=== PATIENT | female | born 1970 | race Caucasian/White ===

== ENCOUNTER 2017-12-09 06:54 | Day surgery (SDC) | payer MEDICAID ==
[2017-12-05 11:53] LABS: BASOPHILS # (AUTO) 0.1 K/uL (0.00-0.22); BASOPHILS % (AUTO) 0.7 % (0.0-2.0); EOSINOPHILS # (AUTO) 0.1 K/uL (0-0.4); EOSINOPHILS % (AUTO) 1.1 % (0.0-4.0); HEMATOCRIT 40.2 % (36-48); HEMOGLOBIN 13.8 g/dL (12.0-16.0); LYMPHOCYTES # (AUTO) 2.7 K/uL (2.5-16.5); LYMPHOCYTES % (AUTO) 34.7 % (20.5-51.1); MEAN CORPUSCULAR HEMOGLOBIN 32 pg (27-31); MEAN CORPUSCULAR HGB CONC 34 g/dL (33-37); MEAN CORPUSCULAR VOLUME 93.3 fL (80-94); MONOCYTES # (AUTO) 0.4 K/uL (0.8-1.0); MONOCYTES % (AUTO) 4.8 % (1.7-9.3); NEUTROPHILS # (AUTO) 4.6 K/uL (1.8-7.7); NEUTROPHILS % (AUTO) 58.7 % (42.2-75.2); PLATELET COUNT (AUTO) 223 K/uL (140-450); RED BLOOD CELL COUNT(AUTO) 4.31 MIL/uL (4.20-5.40); RED CELL DISTRIBUTION WIDTH 13.2 % (11.6-13.7); WHITE BLOOD COUNT (AUTO) 7.8 K/uL (4.8-10.8)
[2017-12-05 12:21] LABS: CREATININE 0.9 mg/dL (0.6-1.3)
[~2017-12-09] VITALS: Ht 152.4 cm; Wt 67.1 kg
[2017-12-09] MEDS ORDERED: TAMO20TA3 PO (07:33)
[2017-12-09] MEDS ORDERED: BENA20TA PO (07:33)
[2017-12-09] MEDS ORDERED: METF500T2 PO (07:33)
[2017-12-09] MEDS ORDERED: CEFAZOLIN SODIUM 1 GM/D5W PM 50 ML IV SCH (07:40)
[2017-12-09] MEDS ORDERED: PROPOFOL 200 MG/20 ML VIAL IV ONE (09:32)
[2017-12-09] MEDS ORDERED: BUPIVACAINE MPF 0.25% 10 ML VIAL INJ ONE (09:33)
[2017-12-09] MEDS ORDERED: fentaNYL 0.05 MG/ML VIAL ONE (09:41)
[2017-12-09] MEDS ORDERED: MIDAZOLAM 2 MG/2 ML VIAL ONE (09:42)
[2017-12-09] MEDS ORDERED: ONDANSETRON 4 MG/2 ML VIAL IVP PRN (09:55)
[2017-12-09] MEDS ORDERED: HYDROmorphone 1 MG/ML AMP IVP PRN (09:55)
[2017-12-09] MEDS ORDERED: BLOOD GLUCOSE MONITORING 1 DEV DEV FS SCH (09:55)
== END 2017-12-09 12:00 | disposition home or self-care (01) ==
LOC: MDS 06:54 → MMU 06:55 → MDS 12:00
PROVIDERS: ATTEND Surgery
DX: Z45.2 Encounter for adjustment and management of vascular access device (principal); E11.9 Type 2 diabetes mellitus without complications; Z85.3 Personal history of malignant neoplasm of breast; K21.9 Gastro-esophageal reflux disease without esophagitis; E66.3 Overweight; Z98.890 Other specified postprocedural states; Z68.28 Body mass index [BMI] 28.0-28.9, adult; Z79.899 Other long term (current) drug therapy
CPT/HCPCS: 36415; 36590; 71045; 80048; 81025; 82948; 85025; 93005; J0690; J2250; J2704; J3010; J3490; J7030

== ENCOUNTER 2020-01-15 05:18 | Emergency (ER) | payer MEDICAID ==
[~2020-01-15] VITALS: Ht 152.4 cm; Wt 64.9 kg
[~2020-01-15 05:18] MED LIST: BENA20TA PO; METF500T2 PO; TAMO20TA3 PO
[2020-01-15 05:25] VITALS: BP 141/87
[2020-01-15] MEDS ORDERED: KETOROLAC 30 MG/ML VIAL IM ONE (05:50)
--- NOTE | 2020-01-15 05:52 | NUR ---
PT C/O CHEST PAIN X 2 WEEKS, WAS SEEN AT [facility] AND DX WITH COSTOCHONDRITIS, HOWEVER THE PAIN HAS GOTTEN WORSE AND NOW RADIATES INTO HER LEFT ARM. PT ALSO C/O NAUSEA BUT NO VOMITING OR DIARRHEA. SOME SOB DUE TO PAIN LEVEL, NO COUGH, AFEBRILE. RESPIRATIONS REGULAR AND UNLABORED. PT PLACED N BEDSIDE MONITOR. BED IN LOWEST POSITION AND SIDERAIL UP X 1. NKA HX - HTN, HLD, DM, BREAST CA
--- NOTE | 2020-01-15 05:54 | NUR ---
EMT AT BEDSIDE PERFORMING EKG
--- NOTE | 2020-01-15 06:01 | NUR ---
LABS COLLECTED AND PICKED UP BY OVERHEAD CLEANER MAINTAINER
[2020-01-15 06:08] LABS: BASOPHILS % (AUTO) 0.4 % (0.0-2.0); EOSINOPHILS # (AUTO) 0.2 K/uL (0-0.4); EOSINOPHILS % (AUTO) 2.4 % (0.0-4.0); HEMATOCRIT 37.5 % (36-48); LYMPHOCYTES # (AUTO) 2.7 K/uL (2.5-16.5); LYMPHOCYTES % (AUTO) 33.1 % (20.5-51.1); MEAN CORPUSCULAR HEMOGLOBIN 33 pg (27-31); MEAN CORPUSCULAR HGB CONC 35 g/dL (33-37); MEAN CORPUSCULAR VOLUME 93.8 fL (80-94); MONOCYTES # (AUTO) 0.5 K/uL (0.8-1.0); NEUTROPHILS # (AUTO) 4.7 K/uL (1.8-7.7); NEUTROPHILS % (AUTO) 58.1 % (42.2-75.2); PLATELET COUNT (AUTO) 243 K/uL (140-450); RED CELL DISTRIBUTION WIDTH 13.2 % (11.6-13.7); WHITE BLOOD COUNT (AUTO) 8.1 K/uL (4.8-10.8)
--- NOTE | 2020-01-15 06:47 | NUR ---
LAB CALLED REGARDING PENDING RESULTS FOR CHEMISTRY PANEL, STATES THEY ARE STILL RUNNING.
--- NOTE | 2020-01-15 06:49 | NUR ---
PT RESTING QUIETLY, STATES PAIN IS BETTER BUT STILL A 4-5/10, WHEN ASKED IF SHE WANTED SOME MORE PAIN MEDS SHE SAID YES, MD RIVERA AWARE, NEW ORDER RECEIVED.
[2020-01-15] MEDS ORDERED: ACETAMINOPHEN EXTRA STRENGTH 500 MG TAB ONE (06:59)
[2020-01-15] MEDS ORDERED: ACETAMINOPHEN EXTRA STRENGTH 500 MG TAB PO ONE (07:00)
[2020-01-15 07:06] LABS: ALBUMIN 3.8 g/dL (3.4-5.0); CARBON DIOXIDE 26.9 mmol/L (21-32); CREATININE 0.8 mg/dL (0.6-1.3); POTASSIUM 3.9 mmol/L (3.5-5.1); TOTAL BILIRUBIN 0.6 mg/dL (0.0-1.0)
--- NOTE | 2020-01-15 07:08 | NUR ---
REPORT GIVEN TO LANG DOSS
--- NOTE | 2020-01-15 07:09 | NUR ---
REPORT RECEIVED FROM BROOKLYNN DOSS, TRANSFER OF CARE AT THIS TIME
--- NOTE | 2020-01-15 07:17 | NUR ---
Patient discharged with v/s stable. Written and verbal after care instructions about chest wall pain given and explained. Patient alert, oriented and verbalized understanding of instructions. Ambulatory with steady gait. All questions addressed prior to discharge. ID band removed. Patient advised to follow up with PMD. Rx of naprosyn given. Patient educated on indication of medication including possible reaction and side effects. Opportunity to ask questions provided and answered.
[2020-01-15 07:19] VITALS: BP 119/65
== END 2020-01-15 07:17 | disposition home or self-care (01) ==
LOC: MED 05:18
DX: R07.89 Other chest pain (principal); Z79.899 Other long term (current) drug therapy; Z79.84 Long term (current) use of oral hypoglycemic drugs
CPT/HCPCS: 36415; 71045; 80053; 83690; 83880; 84484; 85025; 93005; 96372; 99285; J1885; Q0092

== ENCOUNTER 2020-03-13 09:00 | Inpatient (IN) | payer MEDICAID, SELFPAY ==
[~2020-03-13] VITALS: Ht 152.4 cm; Wt 65.8 kg
[2020-03-13 09:14] VITALS: BP 129/75
[2020-03-13] MEDS ORDERED: ACETAMINOPHEN EXTRA STRENGTH 500 MG TAB PO ONE (09:30)
--- NOTE | 2020-03-13 09:30 | NUR ---
Note dennisonelia in EDM - 03/13/20 at 1554 by AirizuJ 49 YEAR OLD FEMALE COMPLAINS OF BODYACHES, FEVER, SHORTNESS OF BREATHE, AND HEADACHE X 5 DAYS. PT PLACED ON MONITOR, VS STABLE. SPO2 98% ON RA, RR 13. PT AOX4, BREATHING EVEN AND UNLABORED, SKIN WARM AND DRY. BED IN LOWEST POSITION, LOCKED, BED RAIL UPX1. PMH - HTN, DM2, CANCER ALLERGIS - NKA
--- NOTE | 2020-03-13 09:30 | NUR ---
49 YEAR OLD FEMALE COMPLAINS OF BODYACHES, FEVER, SHORTNESS OF BREATHE, AND HEADACHE X 5 DAYS. PT PLACED ON MONITOR, VS STABLE. SPO2 98% ON RA, RR 13. PT AOX4, BREATHING EVEN AND UNLABORED, SKIN WARM AND DRY. BED IN LOWEST POSITION, LOCKED, BED RAIL UPX1. PMH - HTN, DM2, BREAST CANCER (10 YEARS AGO) ALLERGIS - NKA
--- NOTE | 2020-03-13 10:09 | NUR ---
FLU, RSV, AND CHERYL SWAB SENT TO LAB
[2020-03-13 10:23] LABS: BASOPHILS % (AUTO) 0.4 % (0.0-2.0); HEMOGLOBIN 14.7 g/dL (12.0-16.0); LYMPHOCYTES # (AUTO) 1.1 K/uL (2.5-16.5); LYMPHOCYTES % (AUTO) 26.9 % (20.5-51.1); MEAN CORPUSCULAR HEMOGLOBIN 32 pg (27-31); MEAN CORPUSCULAR HGB CONC 35 g/dL (33-37); MEAN CORPUSCULAR VOLUME 91.7 fL (80-94); MONOCYTES # (AUTO) 0.3 K/uL (0.8-1.0); MONOCYTES % (AUTO) 7.7 % (1.7-9.3); NEUTROPHILS # (AUTO) 2.7 K/uL (1.8-7.7); PLATELET COUNT (AUTO) 137 K/uL (140-450); RED BLOOD CELL COUNT(AUTO) 4.58 MIL/uL (4.20-5.40); RED CELL DISTRIBUTION WIDTH 13.4 % (11.6-13.7); WHITE BLOOD COUNT (AUTO) 4.1 K/uL (4.8-10.8)
[2020-03-13 10:31] LABS: APPEARANCE,URINE CLEAR (CLEAR); BILIRUBIN,URINE NEGATIVE (NEGATIVE); BLOOD, URINE NEGATIVE (NEGATIVE); COLOR,URINE YELLOW (YELLOW); LEUKOCYTE ESTERASE ,URINE NEGATIVE (NEGATIVE); NITRITE, URINE NEGATIVE (NEGATIVE); UGLUCOSE 2+ (NEGATIVE)
[2020-03-13 10:35] LABS: RBC,URINE 0-5 /HPF (0-5); WBC,URINE 0-5 /HPF (0-5)
[2020-03-13 10:35] LABS: ANION GAP 14.7 (8-16); CARBON DIOXIDE 23.3 mmol/L (21-32); CREATININE 0.7 mg/dL (0.6-1.3)
[2020-03-13 10:40] LABS: LACTATE DEHYDROGENASE 219 U/L (81-234)
[2020-03-13 10:41] LABS: ALBUMIN 3.8 g/dL (3.4-5.0); C-REACTIVE PROTEIN QUANT 3.3 mg/dL (0.0-0.9); TOTAL BILIRUBIN 0.5 mg/dL (0.0-1.0)
[2020-03-13 10:57] LABS: PROTHROMBIN TIME 10.3 secs (10.8-13.4)
--- NOTE | 2020-03-13 11:03 | NUR ---
PT ALERT AND AWAKE, BREATHING EVEN AND UNLABORED. NO DISTRESS NOTED.
[2020-03-13 11:18] LABS: RSV NEGATIVE (NEGATIVE)
--- NOTE | 2020-03-13 12:35 | NUR ---
covid swab collected and sent to lab
--- NOTE | 2020-03-13 13:00 | NUR ---
PT ALERT AND AWAKE, BREATHING EVEN AND UNLABORED. NO DISTRESS NOTED.
--- NOTE | 2020-03-13 14:08 | NUR ---
PT ALERT AND AWAKE, BREATHING EVEN AND UNLABORED. NO DISTRESS NOTED.
[2020-03-13] MEDS ORDERED: HYDROcodone/APAP 7.5/325 MG 1 TAB PO PRN (14:35)
[2020-03-13] MEDS ORDERED: POTASSIUM CHLORIDE 10 MEQ TABER PO PRN (14:35)
[2020-03-13] MEDS ORDERED: ONDANSETRON 4 MG/2 ML VIAL IM/IVP PRN (14:35)
[2020-03-13] MEDS ORDERED: DOCUSATE SODIUM 100 MG GELCAP PO PRN (14:35)
[2020-03-13] MEDS ORDERED: guaiFENesin DM 200/20 MG-10 ML 10 ML UDC PO PRN (14:35)
[2020-03-13] MEDS ORDERED: ZOLPIDEM 5 MG TAB PO PRN (14:35)
[2020-03-13] MEDS ORDERED: ALBUTEROL HFA MDI 90 MCG/ACTUATION 8 GM INH PRN (14:40)
[2020-03-13] MEDS ORDERED: ALBUTEROL SULFATE/IPRATROPIU 3 ML SOL IH PRN (14:40)
--- NOTE | 2020-03-13 14:42 | NUR ---
PER DR JAY TO IGNORE THE OBTAIN CONSENT ORDER FOR NOW, IT WAS NOT MEAN TO BE PUT IN
[2020-03-13] MEDS: NACL 0.9% 1,000 ML IV SCH (15:04)
[2020-03-13] MEDS ORDERED: cefTRIAXone 1,000 MG VIAL ONE (15:05)
[2020-03-13 15:14] LABS: CHOL/HDL RATIO 2.4 (1-4.5); MAGNESIUM 1.5 mg/dL (1.8-2.4); PHOSPHORUS 3.6 mg/dL (2.5-4.9); THYROID STIMULATING HORMONE 0.72 uIU/mL (0.34-3.74)
--- NOTE | 2020-03-13 15:30 | NUR ---
PT ALERT AND AWAKE, BREATHING EVEN AND UNLABORED. NO DISTRESS NOTED.
--- NOTE | 2020-03-13 16:05 | NUR ---
PER SINA IN LAB, CHERYL TEST CAME BACK INVALID FOR A 2ND TIME. PER SINA, DO NOT RUN A 3RD TEST & WAIT ON PCR RESULT
[2020-03-13] MEDS ORDERED: ATOR10TA PO (16:40)
[2020-03-13] MEDS ORDERED: LISI10TA11 PO (16:40)
--- NOTE | 2020-03-13 17:00 | NUR ---
PT ALERT AND AWAKE, BREATHING EVEN AND UNLABORED. NO DISTRESS NOTED.
--- NOTE | 2020-03-13 18:00 | NUR ---
PT ALERT AND AWAKE, BREATHING EVEN AND UNLABORED. NO DISTRESS NOTED.
[2020-03-13] MEDS: ALBUTEROL SULFATE/IPRATROPIU 3 ML SOL IH SCH (19:00)
--- NOTE | 2020-03-13 19:16 | NUR ---
RECEIVED REPORT FROM SELAM CROFT FOR CONTINUATION OF CARE
--- NOTE | 2020-03-13 19:23 | NUR ---
REPORT GIVEN TO ELI DOSS, TRANSFER OF CARE AT THIS TIME
--- NOTE | 2020-03-13 19:41 | NUR ---
PT IS ASLEEP IN BED WITH HOB ELEVATED, VISIBLE RISE AND FALL OF CHEST NOTED. BED IS LOCKED AND IN LOWEST POSITION. PT IS NOT IN ANY ACUTE DISTRESS AT THIS TIME. PT IS CONNECTED TO THE LOTTERIES AGENT, SAO2 @ 99%.
--- NOTE | 2020-03-13 20:17 | NUR ---
REPORT CALLED TO SELAM MENON FOR TRANSFER OF CARE TO TELEMETRY ROOM 111A.
--- NOTE | 2020-03-13 20:19 | NUR ---
pt ambulated to bedside commode with a steady gait
--- NOTE | 2020-03-13 21:23 | NUR ---
Pts oral temperature is at 102.0, will administer PRN tylenol for fever.
--- NOTE | 2020-03-13 21:45 | NUR ---
RECEIVED REPORT FROM ER NURSE. PT ARRIVED FROM ER TO UNIT VIA GURNEY. PT AAOX4, AMBULATORY, ABLE TO MAKE NEEDS KNOWN. CALM AND COOPERATIVE TO CARE. RESPIRATIONS EVEN AND UNLABORED TO O2 2LPM/NC. LUNG SOUNDS DIMINISHED. ABDOMEN IS SOFT AND NON-TENDER. SKIN IS WARM, DRY, AND INTACT. IV ACCESS ON LEFT AC G22 PATENT AND INTACT. IVF INFUSING WELL. PT DENIES ANY PAIN OR DISCOMFORT AT THIS TIME. PT WELCOMED AND ORIENTED TO ROOM. VITAL SIGNS TAKEN. MRSA SWAB DONE. PT CONNECTED TO TELE MONITORING. PT KEPT COMFORTABLE. SAFETY MEASURES IN PLACE. CALL LIGHT WITHIN REACH. WILL CONTINUE TO MONITOR.
--- NOTE | 2020-03-13 21:45 | NUR ---
Patient will be admitted to care of DR. JAY. Admited to TELEMETRY. Will go to room 111A. Belongings list completed. Report to SELAM PRECIADO.
[2020-03-13] MEDS: ACETAMINOPHEN 325 MG TAB PO PRN (21:53)
--- NOTE | 2020-03-13 21:55 | NUR ---
TEMP 99.7. COOLING MEASURES IN PLACE. SCHEDULED MEDS GIVEN. PROVIDED SNACKS AND WATER PER PT REQUESTS. PT KEPT COMFORTABLE. SAFETY MEASURES IN PLACE. CALL LIGHT WITHIN REACH. WILL CONTINUE TO MONITOR.
[2020-03-13 23:19] LABS: BARBITURATE, URINE NEGATIVE ng/ml (NEG <=200); BENZODIAZEPINE, URINE NEGATIVE ng/mL (NEG <=200); CANNABINOID, URINE NEGATIVE ng/mL (NEG <=50); COCAINE, URINE NEGATIVE ng/mL (NEG <=300); OPIATE, URINE NEGATIVE ng/mL (NEG <=2000); PHENCYCLIDINE SCREEN,URINE NEGATIVE ng/mL (NEG <=25)
[2020-03-14] VITALS: BP 97/60
--- NOTE | 2020-03-14 00:03 | NUR ---
VS TAKEN. ORAL TEMP 100.2. TYLENOL NOT DUE YET. COOLING MEASURES IN PLACE. PT NOT IN DISTRESS. DENIES ANY PAIN OR DISCOMFORT AT THIS TIME. WILL CONTINUE TO MONITOR.
[2020-03-14] MEDS: ALBUTEROL SULFATE/IPRATROPIU 3 ML SOL IH SCH ×4 (01:00→19:00)
--- NOTE | 2020-03-14 02:12 | NUR ---
PT ASLEEP. VISIBLE CHEST RISE AND FALL NOTED. PT NOT IN DISTRESS. O2 SAT 97%. PT KEPT COMFORTABLE. SAFETY MEASURES IN PLACE. CALL LIGHT WITHIN REACH. WILL CONTINUE TO MONITOR.
[2020-03-14 04:00] VITALS: BP 107/67
--- NOTE | 2020-03-14 04:09 | NUR ---
VS TAKEN. PT AFEBRILE TEMP 99.3 BUT STILL FEELS WARM. COOLING MEASURES IN PLACE. PT COMPLAINING OF HEADACHE. PRN TYLENOL GIVEN ORDERED. WILL CONTINUE TO MONITOR.
[2020-03-14] MEDS: ACETAMINOPHEN 325 MG TAB PO PRN ×2 (04:10→12:39)
[2020-03-14] MEDS: NACL 0.9% 1,000 ML IV SCH ×2 (07:15→23:55)
--- NOTE | 2020-03-14 07:22 | NUR ---
ENDORSED TO DAY SHIFT NURSE FOR CONTINUITY OF CARE
--- NOTE | 2020-03-14 07:27 | NUR ---
RECEIVED REPORT FROM NIGHTSHIFT NURSE. PT RESTING IN BED. ABLE TO MAKE NEEDS KNOWN. RESPIRATIONS EVEN AND UNLABORED WITH NO SOB OR RESPIRATORY DISTRESS. SKIN WARM AND DRY TO TOUCH. IV SITE IN LAC 20G IS CLEAN, DRY, AND INTACT. SAFETY MEASURES IN PLACE. WILL CONTINUE TO MONITOR
[2020-03-14 07:55] LABS: BASOPHILS % (AUTO) 0.2 % (0.0-2.0); HEMOGLOBIN 13.9 g/dL (12.0-16.0); LYMPHOCYTES % (AUTO) 23.8 % (20.5-51.1); MEAN CORPUSCULAR HEMOGLOBIN 32 pg (27-31); MEAN CORPUSCULAR HGB CONC 35 g/dL (33-37); MEAN CORPUSCULAR VOLUME 92.3 fL (80-94); MONOCYTES # (AUTO) 0.3 K/uL (0.8-1.0); MONOCYTES % (AUTO) 5.8 % (1.7-9.3); NEUTROPHILS % (AUTO) 70.2 % (42.2-75.2); PLATELET COUNT (AUTO) 126 K/uL (140-450); RED BLOOD CELL COUNT(AUTO) 4.33 MIL/uL (4.20-5.40); RED CELL DISTRIBUTION WIDTH 13.1 % (11.6-13.7); WHITE BLOOD COUNT (AUTO) 4.3 K/uL (4.8-10.8)
[2020-03-14 08:00] VITALS: BP 111/69
[2020-03-14] MEDS: metFORMIN 500 MG TAB PO SCH ×2 (08:00→16:56)
[2020-03-14 08:10] LABS: T4 (THYROXINE) 8.4 ug/dL (4.5-12.0)
[2020-03-14 08:17] LABS: ANION GAP 14.9 (8-16); CARBON DIOXIDE 24.1 mmol/L (21-32); CREATININE 0.7 mg/dL (0.6-1.3)
--- NOTE | 2020-03-14 08:39 | NUR ---
PATIENT HAS BEEN SCREENED AND CATEGORIZED MODERATE NUTRITION RISK. PATIENT WILL BE SEEN WITHIN 3-5 DAYS OF ADMISSION. 03/15/20 03/17/[address]
--- NOTE | 2020-03-14 09:45 | NUR ---
ADMINISTERED SCHED MED PRESCRIBED PER MD ORDER. PT TOLERATED WELL. MEDICATION EDUCATION PERFORMED. PT VERBALIZED UNDERSTANDING. SAFETY MEASURES IN PLACE. WILL CONTINUE TO MONITOR
[2020-03-14] MEDS: ZINC SULF 220 MG CAP PO SCH (09:48)
[2020-03-14] MEDS: lisinopriL 10 MG TAB PO SCH (09:48)
[2020-03-14] MEDS: ASCORBIC ACID 500 MG TAB PO SCH (09:49)
[2020-03-14] MEDS: AZITHROMYCIN 250 MG TAB PO SCH (09:49)
[2020-03-14] MEDS: PANTOPRAZOLE 40 MG TABEC PO SCH (09:50)
[2020-03-14] MEDS ORDERED: DEXTROSE 50% 50 ML SYR IVP PRN (11:45)
[2020-03-14 12:00] VITALS: BP 135/72
--- NOTE | 2020-03-14 12:43 | NUR ---
PT COMPLAINED OF MILD PAIN. PRN TYLENOL ADMINISTERED PRESCRIBED PER MD ORDER. PT TOLERATED WELL. WILL CONTINUE TO MONITOR
--- NOTE | 2020-03-14 13:17 | NUR ---
DC PLANN[age] YRS OLD FEMALE PATIENT WAS ADMITTED FROM HOME WITH A DX OF SUSPECTED COVID INFECTION , HYPOXIA, DIABETES. PT HAS HX OF DM, HTN AND BREAST CA ON CHEMOTHERAPY UNTIL 2 MONTHS AGO. CXR SHOWED INFILTRATES. COVID TEST PCR PENDING. ADMINISTERED IVF. IV ABX ROCEPHIN , BREATHING TREATMENT AND CONTINUED HOME MEDS. CONSULTED WITH PULMO. DC PLAN TO GO HOME WHEN STABLE CM TO FOLLOW.
--- NOTE | 2020-03-14 13:37 | NUR ---
SOCIAL WORK NOTE: Patient's Orientation Unable To Assess Information Provided By NADIA MIKE - SISTER Comments SW WAS UNABLE TO MEET PATIENT AT BEDSIDE DUE TO MEDICAL CONDITION. SW CONTACTED PATIENT'S SISTER, NADIA, TO COMLPETE ASSESSMENT AND VERIFY DEMOGRAPHICS. SW USED NOVELTY PRINTING MACHINE OPERATOR ROBERT [id number]. Boat Diesel Motor Mechanic, Realtionship and Phone Number NADIA MIKE SISTER [phone] Healthcare Power of Inspector Aide No Does Patient Have a POLST No Identifying Problems No Social Work Triggers Is A Social Work Consult Needed No Mandate Report Filed No Explanation Of Identifying Problems PATIENT IS A 49-YEAR-OLD FEMALE ADMITTED FOR SUSPECTED COVID INFECTION. PATIENT HAS PMHX OF CANCER, DIABETES, AND HYPERTENSION. PATIENT'S SISTER REPORTED NO HISTORY OF SUBSTANCE ABUSE OR MENTAL HEALTH. Admitted From Home Pre-Admission Level Of Functioning Status Independent/Ambulatory Prior Resources/Services Used In Last 12 Months No Prior Resources Used Prior DME No Prior DME Used Dialysis Comments N/A Living Situation Lives With Family House Patient Had Caregiver No Home Support No Caregiver Issues Financial Issues No Known Financial Issue Referral To The Financial Counselor Needed No Factors/Needs No D/C Needs Identified Explanation And Or Other Factors Affecting/Possible DC Needs PATIENT'S SISTER NADIA STATED SHE WOULD PICK PATIENT UP AT DISCHARGE. Pt/Rep Participated In Discharge Plan Yes Patient/Family Agress With Discharge Plan Yes Discharge Plan Comments TENTATIVE DISCHARGE PLAN IS FOR PATIENT TO BE DISCHARGED HOME. DC Plan Status Initiated
--- NOTE | 2020-03-14 14:15 | NUR ---
HOURLY ROUNDING. PT RESTING IN BED. ABLE TO MAKE NEEDS KNOWN. RESPIRATIONS EVEN AND UNLABORED WITH NO SOB OR RESPIRATORY DISTRESS. SKIN WARM AND DRY TO TOUCH. SAFETY MEASURES IN PLACE. WILL CONTINUE TO MONITOR
--- NOTE | 2020-03-14 15:00 | NUR ---
ADMINISTERED SCHED MED PRESCRIBED PER MD ORDER. PT TOLERATED WELL. MEDICATION EDUCATION PERFORMED. PT VERBALIZED UNDERSTANDING. SAFETY MEASURES IN PLACE. WILL CONTINUE TO MONITOR
[2020-03-14 16:00] VITALS: BP 111/62
--- NOTE | 2020-03-14 16:30 | NUR ---
PT BLOOD SUGAR IS 325. PRN INSULIN TO BE ADMINISTERED PRESCRIBED PER MD ORDER WITH NEXT MEAL. SAFETY MEASURES IN PLACE. WILL CONTINUE TO MONITOR
[2020-03-14] MEDS: BLOOD GLUCOSE MONITORING 1 DEV DEV FS SCH ×2 (16:34→20:47)
[2020-03-14] MEDS: INSULIN LISPRO SLIDING SCALE 100 UNITS/ML VIAL SUBQ PRN ×2 (16:56→21:02)
--- NOTE | 2020-03-14 17:03 | NUR ---
ADMINISTERED SCHED MED PRESCRIBED PER MD ORDER. PT TOLERATED WELL. MEDICATION EDUCATION PERFORMED. PT VERBALIZED UNDERSTANDING. SAFETY MEASURES IN PLACE. WILL CONTINUE TO MONITOR
--- NOTE | 2020-03-14 19:23 | NUR ---
ENDORSED TO NIGHTSHIFT NURSE FOR CONTINUITY OF CARE. PT IS STABLE
--- NOTE | 2020-03-14 19:24 | NUR ---
RECEIVED BEDSIDE REPORT FROM DAY RN. PT RESTING IN BED IS AAOX4 ABLE TO MAKE NEEDS KNOWN. RESPIRATIONS EVEN AND UNLABORED WITH NO SOB OR RESPIRATORY DISTRESS ON 2L VIA NC. SKIN WARM AND DRY TO TOUCH SKIN IS INTACT. IV SITE IN LAC 20G IS CLEAN, DRY, AND INTACT INFUSING NS AT 60ML/H. SAFETY MEASURES IN PLACE. DROPLET SIGN ON DOOR. POC DISCUSSED WITH PT. CALL LIGHT IS WITHIN REACH. WILL CONTINUE TO MONITOR.
[2020-03-14 20:00] VITALS: BP 108/57
--- NOTE | 2020-03-14 20:47 | NUR ---
VSS. PT DENIES ANY SOB ON 2L VIA NC. LUNG SOUNDS DIMINISHED AT BASE. BLOOD SUGAR 311 ADMINISTERED INSULIN PER SLIDING SCALE HAS SNACK AT BEDSIDE. KAT MEDICATION GIVEN PT TOLERATED WELL. ALL NEEDS MET. CALL LIGHT IS WITHIN REACH. WILL CONTINUE TO MONITOR.
--- NOTE | 2020-03-14 21:00 | NUR ---
RECEIVED REPORT FROM AM SHIFT. PT SEEN AND ASSESSED. PT IS NO 2L NASAL CANNULA WITH SPO2 OF 99%. TITRATED PT TO ROOM AIR WITH SPO2 OF 95%. PT IS IN NO APPARENT RESPIRATORY DISTRESS AT THIS TIME. RN NOTIFIED. WILL CONTINUE TO MONITOR PT. HHN TX NOT GIVEN AT THIS TIME DUE TO COVID PROTOCOL.
--- NOTE | 2020-03-14 22:32 | NUR ---
PT IS RESTING COMFORTABLY IN BED WATCHING TV. NO S/S OF DISTRESS. CALL LIGHT IS WITHIN REACH.
[2020-03-15] VITALS: BP 104/53
--- NOTE | 2020-03-15 | NUR ---
VITAL SIGNS ARE WITHIN NORMAL LIMITS. ALL SAFETY MEASURES ARE IN PLACE. CALL LIGHT IS WITHIN REACH. WILL CONTINUE TO MONITOR.
[2020-03-15] MEDS: ALBUTEROL SULFATE/IPRATROPIU 3 ML SOL IH SCH ×2 (01:00→08:25)
--- NOTE | 2020-03-15 02:04 | NUR ---
ROUNDS MADE. PT IS SLEEPING COMFORTABLY IN BED WITH EYES CLOSED. CHEST RISE AND FALL NOTED. ALL SAFETY MEASURES IN PLACE. CALL LIGHT IS WITHIN REACH.
[2020-03-15 04:00] VITALS: BP 107/61
--- NOTE | 2020-03-15 04:15 | NUR ---
VITAL SIGNS ARE WITHIN NORMAL LIMITS. ALL SAFETY MEASURES ARE IN PLACE. CALL LIGHT IS WITHIN REACH.
[2020-03-15] MEDS: BLOOD GLUCOSE MONITORING 1 DEV DEV FS SCH ×3 (06:16→17:08)
[2020-03-15 06:18] LABS: BASOPHILS % (AUTO) 0.1 % (0.0-2.0); HEMATOCRIT 37.3 % (36-48); HEMOGLOBIN 13.2 g/dL (12.0-16.0); MEAN CORPUSCULAR HEMOGLOBIN 32 pg (27-31); MEAN CORPUSCULAR HGB CONC 35 g/dL (33-37); MEAN CORPUSCULAR VOLUME 90.9 fL (80-94); MONOCYTES # (AUTO) 0.3 K/uL (0.8-1.0); NEUTROPHILS # (AUTO) 3.4 K/uL (1.8-7.7); NEUTROPHILS % (AUTO) 72.9 % (42.2-75.2); PLATELET COUNT (AUTO) 137 K/uL (140-450); WHITE BLOOD COUNT (AUTO) 4.7 K/uL (4.8-10.8)
[2020-03-15] MEDS: INSULIN LISPRO SLIDING SCALE 100 UNITS/ML VIAL SUBQ PRN ×3 (06:20→17:20)
[2020-03-15 07:13] LABS: ANION GAP 15.9 (8-16); CREATININE 0.7 mg/dL (0.6-1.3); POTASSIUM 3.9 mmol/L (3.5-5.1)
--- NOTE | 2020-03-15 07:26 | NUR ---
GAVE BEDSIDE REPORT FROM DAY RN. PT ENDORSED IN STABLE CONDITION.
--- NOTE | 2020-03-15 08:00 | NUR ---
RECEIVED REPORT FROM ADULT LITERACY TEACHER NURSE. PATIENT A0X4, BANGLADESHI SPEAKING. VITAL SIGNS STABLE, NO S/S OF RESP DISTRESS NOTED O2 99% ON ROOM AIR. NO PAIN OR COMPLAINTS AT THIS TIME.
--- NOTE | 2020-03-15 08:25 | NUR ---
HHN NOT GIVEN DUE TO COVID -19 PROTOCOL
[2020-03-15] MEDS: metFORMIN 500 MG TAB PO SCH ×2 (08:49→17:08)
[2020-03-15] MEDS: ASCORBIC ACID 500 MG TAB PO SCH (08:49)
[2020-03-15] MEDS: ZINC SULF 220 MG CAP PO SCH (08:50)
[2020-03-15] MEDS: AZITHROMYCIN 250 MG TAB PO SCH (08:50)
[2020-03-15] MEDS: PANTOPRAZOLE 40 MG TABEC PO SCH (08:50)
[2020-03-15] MEDS: MAGNESIUM OXIDE 400 MG TAB PO SCH (09:03)
[2020-03-15] MEDS: lisinopriL 10 MG TAB PO SCH (09:04)
--- NOTE | 2020-03-15 12:00 | NUR ---
PATIENT A0X4. VITAL SIGNS STABLE, NO S/S OF RESP DISTRESS, O2 100% ON ROOM AIR. PATIENT STATED FEELING WELL. NO PAIN OR COMPLAINTS. PATIENT IS ABLE TO AMBULATE WITHOUT ASSISTANCE OR OXYGEN.
[2020-03-15 16:42] VITALS: BP 106/68
[2020-03-15] MEDS: NACL 0.9% 1,000 ML IV SCH (17:09)
--- NOTE | 2020-03-15 19:14 | NUR ---
RECEIVED BEDSIDE REPORT FROM DAY RN. PT RESTING IN BED IS AAOX4 ABLE TO MAKE NEEDS KNOWN. RESPIRATIONS EVEN AND UNLABORED WITH NO SOB OR RESPIRATORY DISTRESS ON ROOM AIR. SKIN WARM AND DRY TO TOUCH SKIN IS INTACT. IV SITE IN LAC 20G IS CLEAN, DRY, AND INTACT INFUSING NS AT 60ML/H. SAFETY MEASURES IN PLACE. DROPLET SIGN ON DOOR. POC DISCUSSED WITH PT. CALL LIGHT IS WITHIN REACH. WILL CONTINUE TO MONITOR.
[2020-03-16 04:00] VITALS: BP 111/76
--- NOTE | 2020-03-16 04:00 | NUR ---
PT SLEEPING, EASILY AROUSABLE, NO SOB NOTED, VITAL SIGNS STABLE, IVF INFUSING WELL, MONITORED CLOSELY.
[2020-03-16] MEDS: INSULIN LISPRO SLIDING SCALE 100 UNITS/ML VIAL SUBQ PRN ×2 (05:58→12:16)
--- NOTE | 2020-03-16 06:00 | NUR ---
PT AWAKE, BLOOD SUGAR CHECKED WITH 234 RESULT, COVERAGE GIVEN, NO RESP DISTRESS AT THIS TIME, MONITORED CLOSELY.
[2020-03-16] MEDS: BLOOD GLUCOSE MONITORING 1 DEV DEV FS SCH ×2 (06:44→12:14)
--- NOTE | 2020-03-16 07:20 | NUR ---
PT SLEEPING, NO SIGNS OF DISTRESS, REPORT GIVEN TO SELAM RENEE FOR CONTINUITY OF CARE.
--- NOTE | 2020-03-16 07:21 | NUR ---
RECEIVED PATIENT AT THIS TIME. PT IS STABLE IN NO DISTRESS. SAFETY MEASURES IN PLACE, NO ENVIRONMENTAL HAZARDS OBSERVED. WILL CONTINUE WITH POC.
[2020-03-16] MEDS: ALBUTEROL SULFATE/IPRATROPIU 3 ML SOL IH SCH (07:41)
[2020-03-16 08:00] VITALS: BP 118/72
--- NOTE | 2020-03-16 08:30 | NUR ---
PT IS AWAKE AND ALERT SITTING IN CHAIR, NEXT TO BED. IN NO DISTRESS. TALKING ON THE PHONE WITH HER DAUGHTERS. BOTH DAUGHTERS ALSO CALLED FOR UPDATE. IN [employer]. DECADRON, ROCEPHIN AND ZITHROMAX WERE D/C. V/S: LUNG SOUNDS CLEAR, ABD IS SOFT AND NONTENDER, DENIES ANY DISCOMFORT. STEADY ON HER FEET. HAS IV ACCESS TO LEFT AC THAT IS INTACT AND PATENT, RECEIVING IVF NS AT 60ML/HR. TOLERATED PO MEDICATION WITH NO ISSUES.
[2020-03-16] MEDS: metFORMIN 500 MG TAB PO SCH (08:33)
[2020-03-16] MEDS: ZINC SULF 220 MG CAP PO SCH (08:34)
[2020-03-16] MEDS: ASCORBIC ACID 500 MG TAB PO SCH (08:34)
[2020-03-16] MEDS: MAGNESIUM OXIDE 400 MG TAB PO SCH (08:34)
[2020-03-16] MEDS: PANTOPRAZOLE 40 MG TABEC PO SCH (08:34)
[2020-03-16] MEDS: lisinopriL 10 MG TAB PO SCH (08:34)
[2020-03-16] MEDS: NACL 0.9% 1,000 ML IV SCH (08:49)
[2020-03-16 10:17] LABS: POTASSIUM 3.6 mmol/L (3.5-5.1)
[2020-03-16 10:18] LABS: ANION GAP 14.9 (8-16); CARBON DIOXIDE 24.7 mmol/L (21-32); CREATININE 0.7 mg/dL (0.6-1.3); TOTAL BILIRUBIN 0.5 mg/dL (0.0-1.0)
[2020-03-16 10:19] LABS: ALBUMIN 3.1 g/dL (3.4-5.0); MAGNESIUM 1.5 mg/dL (1.8-2.4); PHOSPHORUS 3.6 mg/dL (2.5-4.9)
--- NOTE | 2020-03-16 10:30 | NUR ---
PT RESTING IN HER BED AWAKE ALL NEEDS MET AT THIS TIME. CALL LIGHT WITHIN REACH.
[2020-03-16 10:32] LABS: RED BLOOD CELL COUNT(AUTO) 3.98 MIL/uL (4.20-5.40); WHITE BLOOD COUNT (AUTO) 5.9 K/uL (4.8-10.8)
[2020-03-16 10:33] LABS: BASOPHILS % (AUTO) 0.1 % (0.0-2.0); HEMATOCRIT 36.2 % (36-48); HEMOGLOBIN 12.7 g/dL (12.0-16.0); LYMPHOCYTES # (AUTO) 1.1 K/uL (2.5-16.5); LYMPHOCYTES % (AUTO) 19.3 % (20.5-51.1); MEAN CORPUSCULAR HEMOGLOBIN 32 pg (27-31); MEAN CORPUSCULAR HGB CONC 35 g/dL (33-37); MEAN CORPUSCULAR VOLUME 91.1 fL (80-94); MONOCYTES % (AUTO) 5.9 % (1.7-9.3); NEUTROPHILS # (AUTO) 4.4 K/uL (1.8-7.7); NEUTROPHILS % (AUTO) 74.7 % (42.2-75.2); PLATELET COUNT (AUTO) 121 K/uL (140-450); RED CELL DISTRIBUTION WIDTH 13.1 % (11.6-13.7)
[2020-03-16 10:34] LABS: MONOCYTES # (AUTO) 0.3 K/uL (0.8-1.0)
[2020-03-16 12:00] VITALS: BP 117/84
[2020-03-16] MEDS ORDERED: DEXA6TAB8 PO (12:38)
--- NOTE | 2020-03-16 12:40 | NUR ---
V/S: 98.9, 89, 18, 117/84, 96% RA PAIN 0/10. BS 296 PT GOT 6 UNIT OF HUMALOG. PT HAS D/C ORDER.
[2020-03-16] MEDS ORDERED: ZINC220C28 PO (12:41)
[2020-03-16] MEDS ORDERED: VITC500 PO (12:41)
[2020-03-16 13:30] VITALS: BP 117/84
[2020-03-16] MEDS ORDERED: PNEUMOCOCCAL VACCINE 23 MCG/0.5 ML VIAL IMVAC SCH (14:30)
--- NOTE | 2020-03-16 14:40 | NUR ---
PT. DISCHARGED AT THIS TIME. PT IS AMBULATING WITH STEADY GAIT, ORIENTED X 4 AND ABLE TO COMMUNICATE EFFECTIVITY PT LEFT IN A PRIVATE CAR WITH DAUGHTER WITH ALL BELONGINGS. NOTHING LEFT BEHIND IN ROOM AFTER CLEAN UP. DISCHARGE INSTRUCTIONS GIVEN AND EDUCATED ON SELF ISOLATING X 14 DAYS WHILE STAYING IN PRIVATE ROOM AT HOME. EDUCATED ON PHARM MEDICATION TO BE PICKED UP AT [facility] IN [place]. PT VERBALIZED UNDERSTANDING NO QUESTIONS AT THIS TIME. IV ACCESS WAS REMOVED WITH CATH INTACT. SKIN INTACT.
== END 2020-03-16 14:40 | disposition home or self-care (01) | DRG 137 ==
LOC: MED 09:00 → MMU 11:57 → MTU 20:47
PROVIDERS: ADMIT Family Medicine; ATTEND Family Medicine
DX: U07.1 COVID-19 (principal); E87.1 Hypo-osmolality and hyponatremia; G93.41 Metabolic encephalopathy; I10 Essential (primary) hypertension; Z85.3 Personal history of malignant neoplasm of breast; K80.20 Calculus of gallbladder without cholecystitis without obstruction; E86.0 Dehydration; K76.0 Fatty (change of) liver, not elsewhere classified; E11.9 Type 2 diabetes mellitus without complications; Z92.21 Personal history of antineoplastic chemotherapy; R74.01 Elevation of levels of liver transaminase levels; R65.10 Systemic inflammatory response syndrome (SIRS) of non-infectious origin without acute organ dysfunction
CPT/HCPCS: 36415; 36600; 71045; 76700; 80048; 80053; 80305; 81001; 82150; 82550; 82728; 82803; 82948; 83036; 83605; 83615; 83690; 83735; 83880; 84100; 84436; 84439; 84443; 84479; 84484; 85025; 85379; 85384; 85610; 85651; 85730; 86140; 86886; 86900; 86901; 87040; 87081; 87086; 87420; 87804; 90732; 93005; 99285; J0696; J1644; J7030; J7060; U0003